=== PATIENT | male | born 2000 | race Caucasian/White ===

== ENCOUNTER 2021-09-17 15:33 | Emergency (ER) | payer BC, SELFPAY ==
--- OUTSIDE RECORDS SUMMARY | 2021-09-17 15:39 | XMS REPORT | Continuity of Care Document ---
:2000 Author Organization [facility] t Address [address] [place] [address] Care Team Providers Name Role Phone PCP, DOES NOT HAVE A Primary Care Physician Unavailable SANJUANA Attending Clinician Unavailable COYLE Attending Clinician Unavailable Coyle DO Attending Clinician Doctor Unassigned, Name Attending Clinician Unavailable Chuck MCLAUGHLIN, T Attending Clinician Unavailable Provider, Db Urgent Care Attending Clinician Unavailable Sanjuana [employer] Attending Clinician Payers Payer Name Policy Type Policy Number Effective Date Ex[facility] Date [id number] 2021 00:00:00 OUT OF STATE Problems Condition Condition Condition Status Onset Resolution Last Treating Co mments Source Name Details Category Date Date Treatment Clinician Date No known No known Disease Unive rs active active ity of problems problems [facility] Allergies, Adverse Reactions, Alerts Allergy Allergy Status Severity Reaction(s) Onset Inactive Treating Comm ents Source Name Type Date Date Clinician ESCITALO DRUG Active Unknown-Cmnt Un wesley JOHNSTONI 3-11 ity of 00:00: [address] NO KNOWN Drug Active Univers ALLERGIE Class ity of S [facility] Social History Social Habit Start Date Stop Date Quantity Comments Source Exposure to Not sure [facility] SARS-CoV-2 (event) Medica l Branch Sex Assigned At [birth year] [facility] 00:00:00 00:00:00 Medical Branch Smoking Status Start Date Stop Date Source Unknown if ever smoked [facility] Medications Ordered Filled Start Stop Current Ordering Indication Dosage Frequency Signature Comments Components Source Medication Medication Date Date Medication? Clinician (SIG) Name Name No known No Univers medications 1-07 ity of 11:20: [address] No known No Univers medications -07 ity of 11:20: [address] No known No Univers medications 1-07 ity of 11:20: [address] No known No Univers medications 1-07 ity of 11:20: [address] Vital Signs Vital Name Observation Time Observation Value Comments Source Systolic blood 2021-05-27 18:50:00 137 mm[Hg] Univer sity of pressure [facility] Diastolic blood 2021-05-27 18:50:00 77 mm[Hg] Unive rsity of [facility] Heart rate 2021-05-27 18:50:00 73 /min Universi ty of [facility] Body temperature 2021-05-27 18:50:00 37.06 Camille [facility] Res[facility] rate 2021-05-27 18:50:00 14 /min [facility] Body height 2021-05-27 18:50:00 180.3 cm [facility] Body weight 2021-05-27 18:50:00 79.379 kg [facility] BMI 2021-05-27 18:50:00 24.41 kg/m2 Universi ty [facility] Oxygen saturation in 2021-05-27 18:50:00 99 /min University of Arterial blood by [place] [employer] Pulse oximetry Branch Respiratory rate 2021-04-26 17:20:00 16 /min [facility] ersity [facility] Body height 2021-04-26 17:20:00 175.3 cm [facility] Body weight 2021-04-26 17:20:00 81.647 kg [facility] BMI 2021-04-26 17:20:00 26.58 kg/m2 Universi ty [facility] Oxygen saturation in 2021-04-26 17:20:00 100 /min University of Arterial blood by [place] [employer] Pulse oximetry Branch Procedures Procedure Date / Time Performed Performing Clinician [facility] e CONSENT/REFUSAL FOR 2021-05-27 18:41:30 Doctor Unassigned, No [facility] AND Name Medical Branch TREATMENT NOTICE OF PRIVACY 2021-05-27 18:41:09 Doctor Unassigned, No Univ [facility] PRACTICES Name Medical Branch Encounters Start End Encounter Admission Attending Care Care Encounter Source Date/Time Date/Time Type Type Clinicians Facility Department ID 2021-06-28 2021-06-28 Outpatient R [facility] [id number] Univers 19:00:00 19:00:00 [id number] ity of [facility] 2021-06-28 2021-06-28 [facility] [id number] Univers 19:00:00 15:36:48 EMELYN ann [facility] 2021-05-27 2021-05-27 Emergency X SINGER [facility] ERT [id number] Univers 12:50:00 13:37:00 MUMTAZ baez [facility] 2021-05-27 2021-05-27 Emergency Singer [facility] [id number] Univers 12:50:00 13:37:00 Mumtaz LEE [id number] i ty [facility] [id number] [facility] [id number] [facility] 084 Branch 2021-05-27 2021-05-27 Orders Doctor SOFIE [id number] Univers 00:00:00 00:00:00 Only Unassigned, ELEAZAR [id number] [facility] [id number] Zoltan as [id number] [facility] 009 Branch 2021-04-27 2021-04-27 SOFIE Garcia [id number] Univers 00:00:00 00:00:00 (Out) Jordana BUSH [id number] it y of HOSPITAL [id number] Zoltan as [id number] [facility] 019 Branch 2021-04-26 2021-04-26 Outpatient R SANJUANA [facility] [id number] Univers 11:00:00 11:20:30 EMELYN ann [facility] 2021-04-26 2021-04-26 Urgent Provider, Ang [facility] [id number] [facility] 11:00:00 11:20:30 [facility] [id number] nestor lawler DELAND [id number] Zoltan as KANNAN?BLEA [id number] Pr mig[address] MEDICAL OFFICE BUILDING Results This patient has no known results.
[2021-09-17] MEDS ORDERED: NA CHLORIDE 0.9% 1,000 ML ONE (16:33)
[2021-09-17] MEDS ORDERED: KETOROLAC 30 MG/ML INJ ONE (16:33)
[2021-09-17 16:37] LABS: Absolute Lymphocytes (CBC) 0.8 K/uL (0.7-4.9); Hematocrit 41.2 % (39.6-49.0); Lymphocytes % 11.1 % (15.3-44.8); MPV 8.9 fL (7.6-11.3); RBC Red Blood Cell Count 4.74 M/uL (4.33-5.43)
[2021-09-17 16:41] LABS: Protime INR 1.16
[2021-09-17 16:44] LABS: AST/SGOT 28 U/L (15-37); Albumin 4.8 g/dL (3.4-5.0); BUN Blood Urea Nitrogen 8 mg/dL (7-18); Bicarbonate 20 mmol/L (21-32); Bilirubin Direct 0.2 mg/dL (0-0.2); Glomerular Filtration Rate 89 ml/min (=/>90); Glucose Level 119 mg/dL (74-106); Sodium Level 140 mmol/L (136-145)
[2021-09-17 16:50] LABS: Alkaline Phosphatase 47 U/L (45-117); Bilirubin Total 0.6 mg/dL (0.2-1.0); Protein, Total 7.9 g/dL (6.4-8.2)
[2021-09-17 16:53] LABS: ALT/SGPT 25 U/L (12-78)
--- NOTE | 2021-09-17 17:13 | RAD REPORT ---
EXAM DESCRIPTION: CT - CTHCSPWOC - 09/17/2021 5:01 pm CLINICAL HISTORY: Trauma, head and neck injury. Seizure and head and face injury COMPARISON: <Comparisons> TECHNIQUE: Axial 5 mm thick images of the head were obtained. Axial 2 mm thick images of the cervical spine were obtained with sagittal and coronal reconstruction images generated and reviewed. All CT scans are performed using dose optimization technique as appropriate and may include automated exposure control or mA/KV adjustment according to patient size. FINDINGS: CT HEAD WITHOUT CONTRAST: No acute hemorrhage, hydrocephalus or extra-axial collection is identified.No areas of brain edema or midline shift. Hemorrhagic fluid is seen in the left maxillary antrum, anterior ethmoid air cells and left frontal s inus.The calvarium is intact. Small left frontal scalp hematoma. CT CERVICAL SPINE WITHOUT CONTRAST: No fracture or subluxation.No prevertebral soft tissues swelling is identified. IMPRESSION: No acute intracranial or cervical spine findings. Facial bone fractures separately reported on dedicated CT.
--- NOTE | 2021-09-17 17:15 | RAD REPORT ---
EXAM DESCRIPTION: CT - CTFB CLINICAL HISTORY: Facial trauma, blunt COMPARISON: Soft Tissue Neck W/Contr dated 10/21/2018No comparisons TECHNIQUE: Axial 2 mm thick images of the face were obtained with sagittal and coronal reconstructio n images. All CT scans are performed using dose optimization technique as appropriate and may include automated exposure control or mA/KV adjustment according to patient size. FINDINGS: Mild bilateral nasal bone fractures are seen.The mandible is intact. The globes and orbital contents are grossly unremarkable.Mild hemorrhagic fluid is seen left maxillar y antrum, anterior ethmoid air cell on the left and left frontal sinus. Small left frontal scalp hematoma. IMPRESSION: Mild bilateral nasal bone fractures. Mild paranasal sinus hemorrhagic fluid.
[2021-09-17 17:45] LABS: Urine Blood Trace-intact (Negative); Urine Glucose Negative (Negative); Urine Protein 2+ (Negative)
[2021-09-17] MEDS ORDERED: ONDANSETRON 4 MG/2 ML VIAL ONE (18:12)
[2021-09-17] MEDS ORDERED: MORPHINE 4 MG/ML SYR ONE (18:12)
[2021-09-17 18:25] LABS: Barbiturates NEGATIVE (NEGATIVE); Benzodiazepines POSITIVE (NEGATIVE); Cocaine NEGATIVE (NEGATIVE); METHAMPHETAM NEGATIVE (NEGATIVE); Methadone NEGATIVE (NEGATIVE); Opiates NEGATIVE (NEGATIVE); Phencyclidine NEGATIVE (NEGATIVE); THC Cannibis POSITIVE (NEGATIVE)
[2021-09-17] MEDS ORDERED: LIDOCAINE 1% MPF 5 ML VIAL ONE (18:57)
[2021-09-17] MEDS ORDERED: TETANUS & DIPHTHERIA TOX,ADULT 0.5 ML VIAL ONE (18:57)
--- NOTE | 2021-09-17 19:52 | ER ---
Nurse's Notes [facility] Name: Jason Plata Jr Age: 21 yrs Sex: Male : 2000 Arrival Date: 09/17/2021 Time: 15:42 Bed 15 Private MD: Diagnosis: Laceration without foreign body of nose;Fracture of nasal bones;Other seizures;Cannabis abuse;Benzodiazepine abuse Presentation: 09/17 15:42 Chief complaint: EMS states: Was at work at [employer], co-workers report that pt was in ph a standing position, fell forward face first w/ no attempt to catch himself then began convulsing, no hx of seizures, was confused and appeared post-ictal on scene, VSS, abrasions to forehead and nose, pt more alert upon arrival to ED, does not recall events. Coronavirus screen: Vaccine status: Patient reports being unvaccinated. Ebola Screen: No symptoms or risks identified at this time. Initial Sepsis Screen: Does the patient meet any 2 criteria? No. Patient's initial sepsis screen is negative. Does the patient have a suspected source of infection? No. Patient's initial sepsis screen is negative. Risk Assessment: Do you want to hurt yourself or someone else? Patient reports no desire to harm self or others. Onset of symptoms was September 17, 2021. 15:42 Method Of Arrival: EMS: [facility] ph 15:42 Acuity: WILLIAM 2 ph Historical: - Allergies: 15:45 No Known Allergies; ph - PMHx: 15:45 None; ph - Immunization history:: Adult Immunizations unknown. - Social history:: Smoking status: Patient denies any tobacco usage or history of. Screenin:13 Abuse screen: Denies threats or abuse. Denies injuries from another. Nutritional ph screening: No deficits noted. Tuberculosis screening: No symptoms or risk factors identified. Fall Risk Fall in past 12 months (25 points). Secondary diagnosis (15 points) IV access (20 points). Ambulatory Aid- None/Bed Rest/Nurse Assist (0 pts). Gait- Normal/Bed Rest/Wheelchair (0 pts) Mental Status- Oriented to own ability (0 pts). Total [place] Fall Scale indicates High Risk Score (45 or more points). Fall prevention measures have been instituted. Side Rails Up X 2 Placed Close to Nursing Station Frequent Obs/Assessments Occuring Family Present and informed to notify staff if the need to leave the bedside As available patient and family educated on Fall Prevention Program and Strategies. Assessment: 16:12 General: Appears in no apparent distress. comfortable, well groomed, Behavior is calm, ph cooperative, appropriate for age. Pain: Complains of pain in face and back. Neuro: Level of Consciousness is awake, alert, obeys commands, Oriented to person, place, situation, Pupils are PERRLA, Seizure activity reported prior to arrival. Cardiovascular: Capillary refill < 3 seconds in bilateral fingers Patient's skin is warm and dry. Respiratory: Airway is patent Respiratory effort is even, unlabored. GI: No signs and/or symptoms were reported involving the gastrointestinal system. Derm: Skin is healthy with good turgor, Skin is pink, warm \\T\\ dry. Musculoskeletal: Circulation, motion, and sensation intact. Range of motion: intact in all extremities. Musculoskeletal: Bony deformity noted of nose. Injury Description: Abrasion sustained to forehead Laceration sustained to bridge of nose is jagged, 0.5 to 2.5 cm long, a small amount of bleeding noted at this time. 17:30 Reassessment: Patient appears in no apparent distress at this time. Patient and/or ph family updated on plan of care and expected duration. Pain level reassessed. Patient is alert, oriented x 3, equal unlabored respirations, skin warm/dry/pink. 18:50 Reassessment: Patient appears in no apparent distress at this time. Patient and/or ph family updated on plan of care and expected duration. Pain level reassessed. Patient is alert, oriented x 3, equal unlabored respirations, skin warm/dry/pink. ERP at bedside to reduce nasal fracture, pt tolerated well. 19:21 Reassessment: No changes from previously documented assessment. I recv'd report on the payton pt in room #15. The provider is currently suturing the pt's face. He is tolerating this well and has family at bedside. He is in NAD. 19:49 Reassessment: The pt had his mother ask for medications to "loosen his neck". The payton provider will be informed. 20:02 Reassessment: I told the MD that the pt wanted "something to relax his neck" and he is payton currently speaking to the pt about the results. He has asked the pt's family to step out while he discusses this with the pt. 20:30 Reassessment: The MD has asked the charge nurse to check with the house sup, to see if payton we have a nasal splint. The pt's abrasions and repaired lac to his face will be cleaned with NS and triple abx applied, per provider's order. 20:55 Reassessment: The charge nurse was able to acquire a splint for the pt's nose. He is payton placing it at this time. The pt's abrasions were cleaned with NS and the triple abx was applied. The remainder was sent with the pt. Vital Signs: 16:14 BP 126 / 73; Pulse 78; Resp 18; Temp 97.9; Pulse Ox 100% on R/A; Weight 77.11 kg; ph Height 5 ft. 11 in. (180.34 cm); 17:30 BP 118 / 72; Pulse 79; Resp 18; Pulse Ox 99% on R/A; ph 18:30 BP 124 / 72; Pulse 54; Resp 18; Pulse Ox 99% on R/A; ph 19:22 BP 120 / 76; Pulse 53; Resp 16; Pulse Ox 100% on R/A; payton 21:05 BP 124 / 70; Pulse 54; Resp 16; Temp 97.9; Pulse Ox 100% on R/A; Pain 0/10; payton 16:14 Body Mass Index 23.71 (77.11 kg, 180.34 cm) ph ED Course: 15:42 Patient arrived in ED. ph 15:45 Redd Kimble NP is PHCP. pm1 15:45 Cedric Saldaña DO is Attending Physician. pm1 15:45 Triage completed. ph 15:45 Arm band placed on Patient placed in an exam room, on a stretcher, on telemetry monitor, ph on pulse oximetry. 15:52 Janelle Gracia, LISSETTE is Primary Nurse. ph 16:12 Initial lab(s) drawn, by me, sent to lab. Maintain EMS IV. Dressing intact. Good blood ph return noted. Site clean \\T\\ dry. Gauge \\T\\ site: 20 RAC. 16:14 Patient has correct armband on for positive identification. Bed in low position. Call ph light in reach. Side rails up X2. Seizure precautions initiated. Client placed on continuous cardiac and pulse oximetry monitoring. NIBP monitoring applied. Door closed. Noise minimized. 17:03 CT Head C Spine In Process Unspecified. EDMS 17:03 CT Facial Bones W/O Con In Process Unspecified. EDMS 18:55 Assist provider with fracture care of nose Fracture is closed. Obvious deformity is ph noted. Reduced with physical manipulation. Patient tolerated well. 19:11 Primary Nurse role handed off by Janelle Gracia RN [email or web address] 19:21 Elisa Pak RN is Primary Nurse. payton 21:08 intact, bleeding controlled, No redness/swelling at site. Pressure dressing applied. payton Administered Medications: 16:43 Drug: NS 0.9% 1000 ml Route: IV; Rate: 1 bolus; Site: right antecubital; ph 19:27 Follow up: Response: No adverse reaction; IV Status: Completed infusion; IV Intake: ph 1000ml 20:22 Follow up: Response: No adverse reaction; IV Status: Completed infusion; IV Intake: payton 1000ml 16:44 Drug: Ketorolac 30 mg Route: IVP; Site: right antecubital; ph 19:25 Follow up: Response: No adverse reaction ph 18:13 Drug: Zofran (Ondansetron) 4 mg Route: IVP; Site: right antecubital; ph 19:27 Follow up: Response: No adverse reaction ph 20:21 Follow up: Response: No adverse reaction payton 18:15 Drug: morphine 4 mg Route: IVP; Infused Over: 4 mins; Site: right antecubital; ph 19:27 Follow up: Response: No adverse reaction; Pain is decreased; RASS: Alert and Calm (0) ph 20:22 Follow up: Response: No adverse reaction payton 18:45 Drug: Tetanus-Diphtheria Toxoid Adult 0.5 ml {[employer] Glass: [employer]. Exp: ph 06/29/2023. Lot #: [id number]. } Route: IM; Site: left deltoid; 19:25 Follow up: Response: No adverse reaction ph 20:22 Follow up: Response: No adverse reaction payton 18:50 Drug: Lidocaine (1 %) 5 ml Volume: 5 ml; Route: Infiltration; ph 19:27 Follow up: Response: No adverse reaction ph 20:21 Follow up: Response: No adverse reaction payton 20:20 Dru grams of (Ancef (cefazolin) 1 grams, NS 0.9% 100 ml) Route: IVPB; Site: right payton antecubital; 20:57 Follow up: IV Status: Completed infusion payton Medication: 19:26 Vaccine Information Statement (VIS) provided today. Questions and/or concerns ph addressed. VIS edition date: November 2019. Intake: 19:27 IV: 1000ml; Total: 1000ml. ph 20:22 IV: 1000ml; Total: 2000ml. payton Outcome: 19:52 Discharge ordered by . pm1 20:32 Condition: stable payton 21:07 Discharged to home ambulatory, with family. payton 21:07 Discharge instructions given to patient, Instructed on discharge instructions, follow up and referral plans. medication usage, Demonstrated understanding of instructions, follow-up care, medications, wound care, Prescriptions given X 2, The pt's mother took the prescriptions to [facility], before they closed, so the pt would have them. 21:08 Patient left the ED. payton Signatures: Dispatcher [employer] Janelle Rubio, RN RN Redd Dial, [employer] pm1 Hiwot Castro kj1 Elisa Pak RN RN payton
--- NOTE | 2021-09-17 19:52 | EDPHYS ---
Physician Documentation [facility] Name: Jason Plata Jr Age: 21 yrs Sex: Male : 2000 Arrival Date: 09/17/2021 Time: 15:42 Bed 15 Private MD: ED Physician Cedric Saldaña HPI: 09/17 16:20 This 21 yrs old Male presents to ER via EMS with complaints of Seizure. pm1 16:20 The patient presents the episode(s) was witnessed, by co-worker(s). Character of pm1 seizure(s): Motor activity: generalized. Seizure onset: just prior to arrival. Context: the seizure(s) was witnessed, by co-worker(s), occurred at work, occurred while the patient was Patient was at work and then fell while standing and started having generalized shaking. Contributing factors: unknown. Seizure Hx: it is unknown whether or not the patient has a previous seizure history. Associated injury: Head/face: Lacerations and abrasions to face, deformity of nose. EMS care: none. Current symptoms: headache. The patient has not experienced similar symptoms in the past. The patient has not recently seen a physician. Historical: - Allergies: 15:45 No Known Allergies; ph - PMHx: 15:45 None; ph - Immunization history:: Adult Immunizations unknown. - Social history:: Smoking status: Patient denies any tobacco usage or history of. ROS: 16:20 Constitutional: Negative for fever, chills, and weight loss, Neck: Negative for injury, pm1 pain, and swelling, Cardiovascular: Negative for chest pain, palpitations, and edema, Respiratory: Negative for shortness of breath, cough, wheezing, and pleuritic chest pain, Abdomen/GI: Negative for abdominal pain, nausea, vomiting, diarrhea, and constipation, MS/Extremity: Negative for injury and deformity, Skin: Negative for injury, rash, and discoloration. 16:20 Neuro: Positive for headache, seizure activity, syncope, Negative for numbness, tingling, weakness. 16:20 All other systems are negative. Exam: 16:20 Constitutional: This is a well developed, well nourished patient who is awake, alert, pm1 and in no acute distress. 16:20 MS/ Extremity: Pulses equal, no cyanosis. Neurovascular intact. Full, normal range of motion. 16:20 Head/face: Noted is no obvious of injury or deformity except abrasion(s), that are mild, of the forehead and mouth, deformity, of the bridge of nose, a laceration(s), of the bridge of nose. 16:20 Eyes: Exam is negative for acute changes, Periorbital structures: appear normal, Conjunctiva: no acute changes. 16:20 ENT: Exam is negative for acute changes, Mouth: no acute changes, Lips: normal, moist, Oral mucosa: normal, pink and intact, moist. 16:20 Neck: C-spine: vertebral tenderness, that is mild, appreciated at C5, C6 and C7. 16:20 Chest/axilla: Exam negative for acute changes, Inspection: normal, Palpation: is normal. 16:20 Cardiovascular: Exam negative for acute changes, Rate: normal, Rhythm: regular, Pulses: no pulse deficits are appreciated, Heart sounds: normal. 16:20 Respiratory: Exam negative for acute changes, respiratory distress, shortness of breath, Breath sounds: are clear throughout. 16:20 Abdomen/GI: Exam negative for acute changes, Inspection: abdomen appears normal, Palpation: abdomen is soft and non-tender, in all quadrants. 16:20 Back: Exam negative for acute changes, pain, is absent. 16:20 Skin: injury, as noted on head exam. 16:20 Neuro: Exam negative for acute changes, Orientation: is normal, Mentation: is normal, Motor: is normal, moves all fours. Vital Signs: 16:14 BP 126 / 73; Pulse 78; Resp 18; Temp 97.9; Pulse Ox 100% on R/A; Weight 77.11 kg; ph Height 5 ft. 11 in. (180.34 cm); 17:30 BP 118 / 72; Pulse 79; Resp 18; Pulse Ox 99% on R/A; ph 18:30 BP 124 / 72; Pulse 54; Resp 18; Pulse Ox 99% on R/A; ph 19:22 BP 120 / 76; Pulse 53; Resp 16; Pulse Ox 100% on R/A; payton 21:05 BP 124 / 70; Pulse 54; Resp 16; Temp 97.9; Pulse Ox 100% on R/A; Pain 0/10; payton 16:14 Body Mass Index 23.71 (77.11 kg, 180.34 cm) ph Procedures: 19:51 Reduction: of the bridge of nose, using manipulation, Patient tolerated well. pm1 Laceration: 19:51 Wound Repair of 1.5cm ( 0.6in ) subcutaneous laceration to bridge of nose. Irregularly pm1 shaped.. Distal neuro/vascular/tendon intact. Anesthesia: Local anesthetic administered with 0.5 mls of 1% lidocaine. Wound prep: Extensive cleansing with hibiclenz by me, Wound irrigation with saline by me, Wound explored extensively, Copious irrigation. Skin closed with 4 6-0 Prolene using simple sutures and sterile technique. Dressed with Neosporin. Patient tolerated well. MDM: 15:54 Patient medically screened. pm1 19:50 Data reviewed: vital signs. Data interpreted: Pulse oximetry: on room air is 100 %. pm1 Interpretation: normal. Counseling: I had a detailed discussion with the patient and/or guardian regarding: the historical points, exam findings, and any diagnostic results supporting the discharge/admit diagnosis, lab results, radiology results, the need for outpatient follow up, to return to the emergency department if symptoms worsen or persist or if there are any questions or concerns that arise at home. 19:51 ED course: Discussed lab findings in private with patient, asked family to leave the pm1 room. Patient reports using cush and I advised him to stop its use due to its potential to cause seizures, renal injury, and . 21:05 ED course: Patient will follow up with Dr. Ricardo for further treatment and evaluation pm1 of nasal fracture. 09/17 15:53 Order name: Acetaminophen; Complete Time: 17:04 09/17 15:53 Order name: Basic Metabolic Panel; Complete Time: 17: 09/17 15:53 Order name: CBC with Diff; Complete Time: 17:04 09/17 15:53 Order name: ETOH Level; Complete Time: 17: 09/17 15:53 Order name: Hepatic Function; Complete Time: 17: 09/17 15:53 Order name: PT-INR; Complete Time: 17: 09/17 15:53 Order name: Ptt, Activated; Complete Time: 17: 09/17 15:53 Order name: Salicylate; Complete Time: 17: 09/17 15:53 Order name: Urine Drug Screen; Complete Time: 18:25 ph 09/17 16:19 Order name: CT Head C Spine; Complete Time: 17:19 pm1 09/17 16:19 Order name: CT Facial Bones W/O Con; Complete Time: 17:19 pm1 09/17 17:45 Order name: Urine Dipstick-Ancillary; Complete Time: 18:05 EDMS 09/17 15:53 Order name: Seizure Precautions; Complete Time: 16:12 ph 09/17 15:53 Order name: IV Saline Lock; Complete Time: 16:11 ph 09/17 15:53 Order name: Labs collected and sent; Complete Time: 16:11 ph 09/17 18:39 Order name: Dressing - Wound; Complete Time: 19:24 pm1 09/17 18:39 Order name: Gloves, Sterile; Complete Time: 19:24 pm1 09/17 18:39 Order name: Prolene, Sutures; Complete Time: 19:24 pm1 09/17 18:39 Order name: Setup Suture Tray; Complete Time: 19:24 pm1 09/17 20:25 Order name: Splint; Complete Time: 20:58 pm1 Administered Medications: 16:43 Drug: NS 0.9% 1000 ml Route: IV; Rate: 1 bolus; Site: right antecubital; ph 19:27 Follow up: Response: No adverse reaction; IV Status: Completed infusion; IV Intake: ph 1000ml 20:22 Follow up: Response: No adverse reaction; IV Status: Completed infusion; IV Intake: payton 1000ml 16:44 Drug: Ketorolac 30 mg Route: IVP; Site: right antecubital; ph 19:25 Follow up: Response: No adverse reaction ph 18:13 Drug: Zofran (Ondansetron) 4 mg Route: IVP; Site: right antecubital; ph 19:27 Follow up: Response: No adverse reaction ph 20:21 Follow up: Response: No adverse reaction payton 18:15 Drug: morphine 4 mg Route: IVP; Infused Over: 4 mins; Site: right antecubital; ph 19:27 Follow up: Response: No adverse reaction; Pain is decreased; RASS: Alert and Calm (0) ph 20:22 Follow up: Response: No adverse reaction payton 18:45 Drug: Tetanus-Diphtheria Toxoid Adult 0.5 ml {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 Exp: ph 06/29/2023. Lot #: [id number]. } Route: IM; Site: left deltoid; 19:25 Follow up: Response: No adverse reaction ph 20:22 Follow up: Response: No adverse reaction payton 18:50 Drug: Lidocaine (1 %) 5 ml Volume: 5 ml; Route: Infiltration; ph 19:27 Follow up: Response: No adverse reaction ph 20:21 Follow up: Response: No adverse reaction payton 20:20 Dru grams of (Ancef (cefazolin) 1 grams, NS 0.9% 100 ml) Route: IVPB; Site: right payton antecubital; 20:57 Follow up: IV Status: Completed infusion payton Disposition: 22:04 Co-signature as Attending Physician, Cedric Saldaña DO I was immediately available on-site ms3 in the Emergency Department for consultation in the care of the patient. . Disposition Summary: 09/17/21 19:52 Discharge Ordered Location: Home pm1 Problem: new pm1 Symptoms: have improved pm1 Condition: Stable pm1 Diagnosis - Laceration without foreign body of nose pm1 - Fracture of nasal bones pm1 - Other seizures pm1 - Cannabis abuse pm1 - Benzodiazepine abuse pm1 Followup: pm1 - With: Emergency Department - When: As needed - Reason: Worsening of condition Followup: pm1 - With: Private Physician - When: 2 - 3 days - Reason: Recheck today's complaints, Continuance of care, Re-evaluation by your physician Discharge Instructions: - Discharge Summary Sheet pm1 - Facial Laceration pm1 - Seizure, Adult pm1 - Syncope pm1 - Nasal Fracture pm1 Forms: - Medication Reconciliation Form pm1 - Thank You Letter pm1 - Antibiotic Education pm1 - Prescription Opioid Use pm1 Prescriptions: - Augmentin 875-125 mg Oral Tablet - take 1 tablet by ORAL route every 12 hours for 10 days; 20 tablet; Refills: 0, pm1 Product Selection Permitted - Tylenol-Codeine #3 300 mg-30 mg Oral - take 2 tablet by ORAL route every 6 hours As needed; 12 tablet; Refills: 0, pm1 Product Selection Permitted Signatures: Dispatcher [employer] Janelle Rubio RN RN ph Redd Kimble, [employer] OPERATOR pm1 Cedric Saldaña DO DO ms3 O'Gomez, Elisa, RN RN payton
[2021-09-17] MEDS ORDERED: CEFAZOLIN SODIUM 1 GM/VIAL ONE (20:06)
[2021-09-17] MEDS ORDERED: NA CHLORIDE 0.9% 100 ML ONE (20:06)
[2021-09-17] MEDS ORDERED: BACI/NEOMYCIN/POLY OINT 15GM TOP ONE (20:35)
[2021-09-17 21:13] VITALS: TEMP 97.9
[2021-09-17 21:19] VITALS: O2SAT 100
[2021-09-17 21:21] VITALS: BP 124/70
== END 2021-09-17 21:08 | disposition home or self-care (01) ==
LOC: ER 15:33
PROC: 0NSBXZZ Reposition Nasal Bone, External Approach (ICD-10-PCS; principal; 2021-09-17)
PROC: 0JQ10ZZ Repair Face Subcutaneous Tissue and Fascia, Open Approach (ICD-10-PCS; 2021-09-17)
DX: S01.21XA Laceration without foreign body of nose, initial encounter (principal); S02.2XXA Fracture of nasal bones, initial encounter for closed fracture; G40.89 Other seizures; F12.10 Cannabis abuse, uncomplicated; F13.10 Sedative, hypnotic or anxiolytic abuse, uncomplicated; W18.30XA Fall on same level, unspecified, initial encounter; Y92.89 Other specified places as the place of occurrence of the external cause; Y99.8 Other external cause status; Z23 Encounter for immunization
CPT/HCPCS: 85025; 80048; 36415; 80320; 80329 ×2; 85610; 80076; 85730; 81003; 80307; 70450; 72125; 70486; 76377; 90714; 21315; 12011; J7030; J2405; J0690; 90471; 96361; 96365; 96375; 99284